=== PATIENT | female | born 1955 | race Asian ===

== ENCOUNTER 2019-06-21 18:42 | Emergency (ER) | payer OTHER ==
[~2019-06-21] VITALS: Ht 157.5 cm; Wt 68.2 kg
[~2019-06-21 18:42] MED LIST: GENTOO
[2019-06-21 22:52] VITALS: BP 111/71
== END 2019-06-21 22:00 | disposition home or self-care (01) ==
LOC: EMS 18:44
DX: F41.9 Anxiety disorder, unspecified (principal); E78.00 Pure hypercholesterolemia, unspecified; Z98.890 Other specified postprocedural states; Z98.51 Tubal ligation status